=== PATIENT | female | born 1970 | race Caucasian/White ===

== ENCOUNTER 2021-07-26 08:19 | Day surgery (SDC) | payer MEDICAID, SELFPAY ==
[~2021-07-26] VITALS: Ht 152.4 cm; Wt 65.8 kg
[2021-07-26 08:49] LABS: HCG,QUAL RESULT NEGATIVE (NEGATIVE)
[2021-07-26] MEDS ORDERED: MEPERIDINE 100 MG INJ. 100 MG/ML VIAL ONE (09:12)
[2021-07-26] MEDS ORDERED: MIDAZOLAM HCL 5 MG/5 ML VIAL ONE (09:12)
[2021-07-26 13:03] VITALS: BP_SYST 112
== END 2021-07-26 11:00 | disposition home or self-care (01) ==
LOC: SDS 08:19 → SMU 08:21 → SDS 11:00
PROVIDERS: ATTEND Internal Medicine Gastroenterology
DX: Z12.11 Encounter for screening for malignant neoplasm of colon (principal); K57.30 Diverticulosis of large intestine without perforation or abscess without bleeding; K64.8 Other hemorrhoids; K59.00 Constipation, unspecified; Z79.899 Other long term (current) drug therapy; Z20.822 Contact with and (suspected) exposure to COVID-19
CPT/HCPCS: 45378; 84703; 99152; G0378; J2175; J2250; U0003